=== PATIENT | female | born 1975 | race Caucasian/White ===

== ENCOUNTER 2023-05-18 09:38 | Emergency (ER) | payer BC, OTHER ==
[2023-05-18 09:53] VITALS: BP 138/82; PULSE 65; RESP 18; TEMP 97.9; BMI 21.7
[2023-05-18] MEDS ORDERED: FAMOTIDINE 20 MG/50 ML IVPB 20 MG/50 ML MG IVPB ONE (10:05)
[2023-05-18] MEDS ORDERED: methylPREDNISolone NA SUCC 125 MG/2 ML VIAL IVPB ONE (10:05)
[2023-05-18] MEDS ORDERED: methylPREDNISolone NA SUCC 125 MG/2 ML VIAL ONE (10:22)
[2023-05-18 10:31] LABS: INR 1.02 (0.83-1.09); PROTHROMBIN TIME (PATIENT) 11.8 SEC (9.7-13.0)
[2023-05-18 10:34] LABS: ACTIVATED PTT 31.3 SECONDS (25.2-36.5)
[2023-05-18 10:40] LABS: HEMATOCRIT 40.6 % (32.4-45.2); HEMOGLOBIN 13.9 G/dL (10.7-15.3); MCH 33.4 pg (25.7-33.7); MCHC 34.1 g/dl (32.0-36.0); MEAN CELL VOLUME 97.8 fl (80-96); MEAN PLT VOLUME 8.1 fl (7.5-11.1); RBC 4.15 10^6/uL (3.60-5.2); RDW 13.2 % (11.6-15.6); WHITE BLOOD COUNT 4.7 10^3/uL (4.0-10.8)
[2023-05-18 10:48] LABS: ALBUMIN 4.4 g/dl (3.4-5.0); BILIRUBIN,TOTAL 0.6 mg/dl (0.2-1); BLOOD UREA NITROGEN 13.1 mg/dl (7-18); CALCIUM 9.1 mg/dl (8.5-10.1); CREATININE 0.8 mg/dl (0.6-1.3); POTASSIUM 4.2 mmol/L (3.5-5.1); SGPT/ALT 17.2 U/L (7-52); TOT PROT 7.1 g/dl (6.4-8.2)
[2023-05-18 11:06] LABS: ERYTHROCYTE SEDIMENTATION RATE 6 mm/hr (0-20); PLATELET ESTIMATE ADEQUATE
== END 2023-05-18 13:59 | disposition home or self-care (01) ==
LOC: FER 09:38
PROC: 3E033GC Introduction of Other Therapeutic Substance into Peripheral Vein, Percutaneous Approach (ICD-10-PCS; principal; 2023-05-18)
PROC: 3E033GC Introduction of Other Therapeutic Substance into Peripheral Vein, Percutaneous Approach (ICD-10-PCS; 2023-05-18)
PROC: 3E033GC Introduction of Other Therapeutic Substance into Peripheral Vein, Percutaneous Approach (ICD-10-PCS; 2023-05-18)
DX: M25.531 Pain in right wrist (principal); M25.432 Effusion, left wrist; W57.XXXA Bitten or stung by nonvenomous insect and other nonvenomous arthropods, initial encounter
CPT/HCPCS: 36415; 73090-TC-RT-FY; 73110-TC-RT-FY; 73130-TC-RT-FY; 80053; 84703; 85025; 85610; 85651; 85730; 86140; 99284-25